=== PATIENT | male | born 1995 | race Two or more races ===

== ENCOUNTER 2017-01-20 15:11 | Emergency (ER) | payer MEDICAID ==
[~2017-01-20] VITALS: Ht 182.9 cm; Wt 70.9 kg
[2017-01-20] MEDS ORDERED: TRIH2TAB3 PO (15:28)
[2017-01-20] MEDS ORDERED: LEVE500T53 PO (15:28)
[2017-01-20] MEDS ORDERED: RISP1 PO (15:28)
[2017-01-20] MEDS ORDERED: CLON2 PO (15:28)
[2017-01-20] MEDS ORDERED: TRAZ150 PO (15:28)
[2017-01-20] MEDS ORDERED: KETOROLAC TROMETHAMINE 30 MG/ML VIAL IM ONE (18:15)
[2017-01-20 18:55] VITALS: BP 129/68
== END 2017-01-20 19:14 | disposition home or self-care (01) ==
LOC: EMS 15:15
DX: R51 Headache (principal); F20.9 Schizophrenia, unspecified; F41.9 Anxiety disorder, unspecified; R56.9 Unspecified convulsions
CPT/HCPCS: 96372; 99283; J1885

== ENCOUNTER 2017-03-04 10:09 | Emergency (ER) | payer MEDICAID ==
[~2017-03-04] VITALS: Ht 182.9 cm; Wt 68.2 kg
[~2017-03-04 10:09] MED LIST: CLON2 PO; LEVE500T53 PO; RISP1 PO; TRAZ150 PO; TRIH2TAB3 PO
[2017-03-04 10:44] VITALS: BP 123/76
== END 2017-03-04 11:51 | disposition home or self-care (01) ==
LOC: EMS 10:10
DX: R51 Headache (principal); F41.9 Anxiety disorder, unspecified; F20.9 Schizophrenia, unspecified
CPT/HCPCS: 99283

== ENCOUNTER 2017-03-17 09:16 | Emergency (ER) | payer MEDICAID ==
[~2017-03-17] VITALS: Ht 182.9 cm; Wt 72.7 kg
[2017-03-17] MEDS ORDERED: AMOX500T2 PO (09:30)
[2017-03-17] MEDS ORDERED: SODIUM CHLORIDE 0.9% 1,000 ML IV ONE (09:30)
[2017-03-17 09:42] LABS: GLUCOSE,POINT OF CARE 149 MG/DL (70-110)
[2017-03-17 09:43] LABS: BASOPHILS % (AUTO) 0.9 % (0.0-2.0); EOSINOPHILS % (AUTO) 2.5 % (1.0-6.0); HEMATOCRIT 49.7 % (41-53); LYMPHOCYTES # (AUTO) 4.1 K/uL (1.0-4.8); LYMPHOCYTES % (AUTO) 61.8 % (22.0-44.0); MEAN CORPUSCULAR HEMOGLOBIN 27.8 pg (26.0-34.0); MEAN CORPUSCULAR HGB CONC 32.1 G/dL (31.0-37.0); MEAN CORPUSCULAR VOLUME 87 fL (80-100); MONOCYTES # (AUTO) 0.6 K/uL (0.1-1.0); MONOCYTES % (AUTO) 8.6 % (2.0-9.0); NEUTROPHILS # (AUTO) 1.7 K/uL (1.8-7.7); NEUTROPHILS % (AUTO) 26.2 % (40.0-70.0); PLATELET COUNT (AUTO) 250 K/uL (150-450); RED BLOOD CELL COUNT(AUTO) 5.74 MIL/uL (4.50-5.90); RED CELL DISTRIBUTION WIDTH 13.9 % (11.5-14.5); WHITE BLOOD COUNT (AUTO) 6.6 K/uL (4.5-11.0)
[2017-03-17 09:51] LABS: ANION GAP 26 mmol/L (8-16); CALCIUM, TOTAL 9.2 mg/dL (8.8-10.5); CARBON DIOXIDE 13 mmol/L (22-29); CHLORIDE 99 mmol/L (98-107); CREATININE 1.29 mg/dL (0.60-1.30); GLOMERULAR FILTR. RATE CALC > 60 mL/min (>60); POTASSIUM 3.8 mmol/L (3.5-5.1); SODIUM SERUM 138 mmol/L (136-145); UREA NITROGEN, BLOOD 9 mg/dL (7-18)
[2017-03-17 09:56] LABS: ALANINE AMINOTRANSFERASE 71 U/L (12-78); ALBUMIN 4.3 g/dL (3.4-5.0); ASPARTATE AMINOTRANSFERASE 30 U/L (15-37); BILIRUBIN,TOTAL 0.4 mg/dL (0.1-1.0); TOTAL PROTEIN, SERUM 8.3 g/dL (6.4-8.2)
[2017-03-17 09:59] LABS: RBC MORPHOLOGY COMMENT NORMAL RBC MORPH
[2017-03-17] MEDS ORDERED: LevETIRAcetam 500 MG TABLET PO ONE (11:30)
[2017-03-17] MEDS ORDERED: PERTUSS(ACELL),DIPH,TET VAC/PF 0.5 ML VIAL IM ONE (11:45)
[2017-03-17 11:53] VITALS: BP 109/59
== END 2017-03-17 12:01 | disposition home or self-care (01) ==
LOC: EMS 09:17
DX: G40.909 Epilepsy, unspecified, not intractable, without status epilepticus (principal)
CPT/HCPCS: 36415; 70450; 80053; 82948; 82962; 85025; 90471; 90715; 93005; 96360; 99285; J7030

== ENCOUNTER 2017-06-12 12:03 | Emergency (ER) | payer MEDICAID ==
[~2017-06-12] VITALS: Ht 182.9 cm; Wt 68.2 kg
[~2017-06-12 12:03] MED LIST changes: +AMOX500T2 PO; -CLON2 PO
[2017-06-12 12:04] VITALS: BP 136/90
== END 2017-06-12 12:41 | disposition left against medical advice (07) ==
LOC: EMS 12:04
DX: R10.9 Unspecified abdominal pain (principal); Z53.21 Procedure and treatment not carried out due to patient leaving prior to being seen by health care provider

== ENCOUNTER 2024-05-19 18:32 | Emergency (ER) | payer MEDICAID ==
[~2024-05-19] VITALS: Ht 182.9 cm; Wt 68.2 kg
[~2024-05-19 18:32] MED LIST changes: -AMOX500T2 PO; +LEVE-71 PO; -LEVE500T53 PO; -RISP1 PO; +RISP1TAB48 PO; -TRAZ150 PO; +TRAZ150T80 PO
[2024-05-19 18:36] VITALS: TEMP 98
[2024-05-19 20:01] VITALS: BP 145/68; PULSE 104; RESP 18; O2SAT 99
[2024-05-19] MEDS ORDERED: IBUP-1492 PO (20:48)
[2024-05-19] MEDS: IBUPROFEN 600 MG TABLET PO ONE (20:50)
== END 2024-05-19 21:11 | disposition home or self-care (01) ==
LOC: EMS 18:32
DX: S60.221A Contusion of right hand, initial encounter (principal); F20.9 Schizophrenia, unspecified; F41.9 Anxiety disorder, unspecified; Z79.899 Other long term (current) drug therapy; W22.09XA Striking against other stationary object, initial encounter; Y93.89 Activity, other specified; Y92.89 Other specified places as the place of occurrence of the external cause; Y99.8 Other external cause status
CPT/HCPCS: 99283